=== PATIENT | female | born 1980 | race African-American/Black ===

== ENCOUNTER 2016-11-20 14:28 | Emergency (ER) | payer MEDICAID ==
[~2016-11-20 14:28] MED LIST: ASPI-1035 PO; CLON0.2T PO; DILTIAZEM; HCTZ
== END 2016-11-20 17:28 | disposition left against medical advice (07) ==
LOC: ER 14:28
DX: R10.9 Unspecified abdominal pain (principal); Z53.21 Procedure and treatment not carried out due to patient leaving prior to being seen by health care provider